=== PATIENT | female | born 1980 | race Caucasian/White ===

== ENCOUNTER 2018-04-09 10:38 | Emergency (ER) | payer MEDICAID, SELFPAY ==
[2018-04-09 10:39] VITALS: BP 166/115; PULSE 95; RESP 20; TEMP 37.1; O2SAT 99; BMI 24.7
--- NOTE | 2018-04-09 10:53 | ED.DCSUM_ITS ---
- ER Visit Summary Date of Service: 04/09/18 Chief Complaint: Cough, nasal congestion and yellowish sputum. History of Present Illness: The patient is a 37 F no significant past medical history. Currently on no medications. Patient does smoke. Plenty URI type symptoms for the last 2-3 days. Son with similar symptoms. Denies fever. Physical Examination: Well-appearing female. Vital signs are stable afebrile. Pulse ox 9 9% on room air no signs of hypoxia. HEENT exam TMs are normal. Posterior pharynx moist and pink no exudate. No frontal maxillary sinus tenderness. No purulent discharge. Neck nontender. No lymphadenopathy. Lungs scattered wheezes. Patient is a smoker. Coarse breath sounds. Dry cough. No rales, no rhonchi. Equal symmetrical. Heart regular rhythm no murmur. Abdomen soft nontender. Moving all 4 extremities. Neurovascularly intact. Calves nontender without edema or cords. Neurologically awake and alert no focal motor deficits. Back nontender. Test Results: None. I do not feel she needs a chest x-ray. I hear no signs of pneumonia. She is not hypoxic. Emergency Department Course and Treatment: Patient treated as a viral URI. Treatment Plan: Prednisone for wheezing. Stop smoking. Disposition: Discharge Impression: Viral bronchitis with bronchospasm Tobacco abuse This note was generated with [employer] dictation software. It may contain incorrect words, spelling, and punctuation that were not noted in review of the chart prior to signing ED Disposition - Plan for ED Patient: Chief Complaint: Cough Referrals: Brodreick Osborne MD [Primary Care Provider] -
--- NOTE | 2018-04-09 10:53 | ED.DEP ---
ED Disposition - Plan for ED Patient: Disposition: Home or Assisted Living Chief Complaint: Cough Instructions: ED Upper Resp Infec No Abx Tx Prescriptions: Prednisone [Deltasone] 40 mg PO DAILY 7 Days tab Referrals: Broderick Osborne MD [Primary Care Provider] - 1 Week if not improving Additional Instructions: Plenty of fluids and rest. Prednisone daily to decrease lung inflammation and wheezing. Very important long-term to stop smoking.
[2018-04-09 11:13] VITALS: BP 149/96; PULSE 80; RESP 17
--- NOTE | 2018-04-10 11:44 | CM.ED ---
ED CALLBACK: Follow-up call placed to patient. Patient states she is feeling better than yesterday. She states she did fill her prescription and states understanding to follow-up with PCP in one week if not improving. Denies questions/concerns.
== END 2018-04-09 11:14 | disposition home or self-care (01) ==
PROVIDERS: Emergency Provider Emergency Medicine; Family Provider Internal Medicine; PCP Internal Medicine
DX: J20.8 Acute bronchitis due to other specified organisms (principal); Z72.0 Tobacco use
CPT/HCPCS: 99282

== ENCOUNTER → 2020-10-06 07:31 | Outpatient (CLI) | payer MEDICAID, SELFPAY ==
--- NOTE | 2020-10-06 08:00 | BRBX_PTH ---
PATIENT: IRVING MEZA LOC: [facility] U#:[id number] AGE/SX: 44/F ROOM: RE10/06/[address]: Dr. Elham Morales MD : 1980 BED: DIS: SPEC #: [id number] RECD: 10/06/20 08:32 STATUS: RUTH ANN EDWINA #: [id number] ALONA: 10/06/20 08:[address]: Elham Morales DEPT: SURGICAL PATHOLOGY RECD BY: Phyllis Craig ENTERED: 10/06/20 09:50 SP TYPE: BREAST BX OT DR: Dr. Broderick Osborne MD Tissues: Right breast, NOS Procedures: Surgery Specimen Level IV HEADER OPERATION: Right breast stereotactic biopsy PRE-OP DIAGNOSIS: Right breast 11 o'clock middle depth microcalcifications TISSUE SUBMITTED: Right breast core tissue ISCHEMIC TIME: 1 minute FIXATION TIME: 11.5 hours MICROSCOPIC DIAGNOSIS Right breast, 11 o'clock middle depth microcalcifications, stereotactic core biopsy: Fragments of benign breast tissue with focal mild fibrocystic changes and mild intraductal hyperplasia without atypia. Frequent microcalcifications. Negative for malignancy. See comment. AUBRIE:amaury 10/07/2020 COMMENT Correlation with clinical, radiologic findings and appropriate follow up are necessary. MICROSCOPIC DESCRIPTION Slides are reviewed. GROSS DESCRIPTION Received in fixative is one container labeled with the patient name and designated right breast. The specimen consists of multiple elongated fragments of michael-yellow fibroadipose tissue that in aggregate measure 5 x 3 x 0.3 cm. The entire specimen is submitted in two cassettes. / AUBRIE:amaury 10/06/20 TC:5 CPT: 29357
--- NOTE | 2020-10-06 09:10 | OP.PCM_ITS ---
Report of Operation Date of Procedure: 10/06/20 Pre-Operative Diagnosis: abnormal right breast mammograms with calcifications Post-Operative Diagnosis: same Surgery/Procedure Performed:: right breast stereotactic biopsy Description of Surgical Findings:: small scattered calcifications in upper outer right breast Type of Anesthesia:: Local - 1% xylocaine Specimen's removed: right breast tissue Estimated Blood Loss (mL): minimal Description of Procedure: After informed consent was given, the patient was brought into the Breast Biopsy suite. Appropriate time out protocol was followed. The patient was placed in the prone position on the stereotactic biopsy table. The patient?s right breast was then placed in the opening at the head of the biopsy table. A ships or barges loader compression mammogram was then obtained in the CC view. The suspicious radiological lesion was thus identified. Stereo pictures of the lesion were then taken for XYZ coordinates. The Mammotome biopsy stylus was then positioned where it would be entering into the patient?s breast. The skin at this site was then cleansed with a surgical skin preparation. The skin and subcutaneous tissues at this site were then infiltrated with 1% xylocaine. A small skin incision was made with an 11 blade scalpel. The biopsy stylus was then positioned into the patient?s breast at the proper coordinates of depth. Using the Mammotome vacuum-assist device, several core samples of breast tissue were obtained. A specimen mammogram was the obtained. It revealed that the abnormal calcifications were within the specimen. I reviewed this personally and concluded that the tissue sampling was adequate. A hemostatic marker clip was then placed into the biopsy cavity and a ships or barges loader film revealed that it was properly deployed. The patient was then placed in the supine position and pressure was applied to the breast until no active bleeding was noted. a nylon suture was placed to reapproximate the skin. A unilateral mammogram in the CC and MLO view were then taken which revealed that the marker clip was in the same area as the previous suspicious lesion. The patient tolerated the procedure well and was discharged from the Breast Biopsy suite in good condition. - Complications none noted
== END ==
PROVIDERS: PCP Internal Medicine; Referring Provider Surgery; Visit Provider Surgery
DX: N62 Hypertrophy of breast (principal); N60.11 Diffuse cystic mastopathy of right breast; J45.909 Unspecified asthma, uncomplicated; F41.9 Anxiety disorder, unspecified; Z79.51 Long term (current) use of inhaled steroids; Z87.891 Personal history of nicotine dependence; Z79.899 Other long term (current) drug therapy
CPT/HCPCS: 19081; 88305; J7050; A4648

== ENCOUNTER 2021-01-29 16:13 | Inpatient (IN) | payer MEDICAID, SELFPAY ==
[2021-01-29 16:14] VITALS: BP 136/89; PULSE 88; RESP 14; TEMP 36.7; O2SAT 96; BMI 23.8
[2021-01-29 18:06] LABS: Absolute Lymphocyte Count 1.23 X10^3/uL (0.83-4.51); Absolute Neutrophil Count 1.8 X10^3/uL (2.0-7.7); Basophil# 0.03 X10^3/uL; Basophil% 0.9 % (0-1); Eosinophil# 0.08 X10^3/uL; Eosinophils% 2.3 % (0-5); Hematocrit 44.3 % (37-47); Hemoglobin 15.1 g/dL (12.0-15.0); Lymphocyte # 1.23 X10^3/ul (0.83-4.51); Lymphocyte % 35.9 % (19-41); Mean Corp Hgb Conc 34.1 g/dL (32-36); Mean Corpuscular Hgb 35.7 pg (27.0-32.0); Mean Corpuscular Volume 104.7 fL (81-99); Mean Platelet Vol. 9.9 fl (6.2-12.0); Monocyte# 0.33 X10^3/uL; Monocyte% 9.6 % (0-10); NRBC Flagged by Analyzer 0 % (0-5); Neutrophil # 1.75 X10^3/uL (2.7-7.7); Platelet Count 275 K/mm3 (150-450); RBC Distribution Width CV 11.4 % (11.6-14.6); RBC Distribution Width SD 44.3 fl (35.1-43.9); Red Blood Count 4.23 M/mm3 (4.2-5.4); White Blood Count 3.4 K/mm3 (4.4-11.0)
[2021-01-29 18:26] LABS: ALB/GLOB Ratio 1.1 RATIO (0.9-2.4); AST(SGOT) 12 U/L (15-37); Alanine Aminotransfer ALT/SGPT 20 U/L (13-56); Alkaline Phosphatase 61 U/L (45-117); Anion Gap 6 (5-15); BUN 8 mg/dL (7-18); BUN/Creat Ratio 6.8 RATIO (10-20); Chloride 107 mmol/L (98-107); Creatinine, Serum 1.18 mg/dL (0.55-1.02); EST Glomerular Filtration Rate 54 mL/min (>60); Est Glom Filt Rate - Afr Amer 65 mL/min (>60); Estimated Creatinine Clearance 52.42 ml/min; Globulin 3.7 g/dL (2.2-4.2); Glucose 105 mg/dL (74-106); Internal QC Validated? YES +Cl - CLEAR BKGD; Lipase 154 U/L (73-393); Potassium 3.1 mmol/L (3.5-5.1); Pregnancy, Serum, hCG Quali. NEGATIVE Negative; Protein, Total 7.7 g/dL (6.4-8.2); Sodium Level 141 mmol/L (136-145)
[2021-01-29 18:29] LABS: Alcohol, Blood (Medical)-Serum < 3.0 mg/dL
[2021-01-29 18:52] LABS: Bacteria 0 SEEN /hpf (None Seen)
[2021-01-29 18:56] LABS: Color, Urine Yellow (Yellow); Glucose, Dipstick Normal (Normal); Ketone-Dipstick Negative (Negative); Leukocyte Esterase-Dipstick Negative /ul (Negative); Nitrite-Dipstick Negative (Negative); Occult Blood-Urine Negative /ul (Negative); Protein-Dipstick Negative (Negative); Urine Bilirubin Dipstick Negative (Negative); Urine Clarity Clear (Clear); Urine Urobilinogen Normal (Normal); Urine pH 6.5 (5.0 - 8.0)
[2021-01-29 19:02] LABS: Mucous, Urine 2+ /hpf (<or=2+); Red Blood Cells-Urine 0-5 SEEN /hpf (0-5); Squamous Epithelial Cells - UA 0-5 SEEN /hpf (5-10); White Blood Cells 0-5 SEEN /hpf (0-5)
--- NOTE | 2021-01-29 19:05 | EDS_ITS ---
HPI History of Present Illness Chief Complaint: Substance Abuse Informant: patient Onset/Context/Timing Onset: Days (3) Context: Gradual Onset Timing: Continuous Quality: Shaky, irritable Location: Generalized Associated Symptoms Associated Symptoms: Negative for vomiting*, diarrhea*, fever*, rash*, seizure, tremor, palpatations, change in mental status, suicidal ideation and homicidal ideation Narrative Narrative: Patient presents requesting detox from alcohol. Patient states that she drinks approximately 20-30 drinks per day. Patient states her last drink was 3 days ago and she only did 2 drinks 3 days ago. Patient states she feels shaky and irritable. Patient denies any prior history of detox. Patient denies any suicidal homicidal ideations. Patient denies any seizures or tremors. Patient denies any nausea, vomiting, fevers, or palpitations. [facility] Medical History (Updated 01/29/21 @ 19:[address] Sven Echols DO) Alcohol abuse Anxiety Depression Hypertension Smoker Substance abuse Home Medications albuterol sulfate [Ventolin HFA] 1 - 2 puff INHALATION Q4H PRN PRN #1 inhaler 05/07/15 [Rx Last Taken Unknown] amlodipine [Norvasc] 5 mg PO DAILY 01/29/21 [History Last Taken Unknown] bupropion HCl [Wellbutrin SR] 150 mg PO BID 01/29/21 [History Last Taken Unknown] varenicline [Chantix Starting Month Box] 1 tab PO BID 01/29/21 [History Last Taken Unknown] Allergy/AdvReac Type Severity Reaction Status Date / Time codeine Allergy Rash Verified 01/29/21 16:16 Surgical History (Updated 01/29/21 @ 19:[address] Sven Echols DO) History of breast biopsy Social History Smoking Status: Heavy Smoker (>10/day) ROS ROS ED Constitutional Constitutional ED: Denies chills or fever(s) Eyes Eyes: Denies blurry vision or change in vision ENT ENT ED: Denies rhinorrhea or sore throat Cardiovascular Cardiovascular: Reports chest pain; Denies palpitations Respiratory/Chest Respiratory/Chest: Denies cough or dyspnea Gastrointestinal Gastrointestinal: Denies nausea or vomiting Genitourinary Genitourinary ED: Denies dysuria or hematuria Musculoskeletal Musculoskeletal: Denies back pain or neck pain Integumentary Denies abscess or rash Neurologic Neurologic: Reports headache(s); Denies weakness Allergic/Immunologic Allergic/Immunologic ED: Denies mouth swelling or urticaria EXAM Physical Exam Const Vital Signs: 01/29/21 16:14 Temperature 98.1 F Temperature Source Temporal Pulse Rate 88 Respiratory Rate 14 Blood Pressure 136/89 H Blood Pressure Mean 104 Pulse Ox 96 Oxygen Delivery Method Room Air Positive well nourished and well developed General Appearance ED: well developed HEENT Reports moist mucous membranes Neck supple and no JVD Resp normal respiratory effort and clear to auscultation bilaterally Cardio regular rate, regular rhythm and no murmurs GI normal to inspection, nondistended, normoactive bowel sounds, soft to palpation, non-tender and non-distended Palpation: soft Extremity normal to inspection General Extremety ED: Negative for edema or tenderness General Extremity: Negative for edema Neuro oriented x3, CN's II-XII intact bilaterally and no sensory deficits noted Sensorium / Orientation: alert Speech: speech normal Motor Exam: strength 5/5 throughout Psych mental status grossly normal Skin no rashes or lesions noted MDM MDM MDM Narrative Medical decision making narrative: CBC was within normal limits. Comprehensive metabolic profile showed mild hypokalemia 3.1. Patient was given a dose of oral potassium here. Lipase was normal. Serum hCG was negative. Urinalysis does not show any evidence of urinary tract infection. Serum alcohol level was less than 3. Urine drug screen is obtained and is positive for cannabinoids and methamphetamines. Case was discussed with the hospitalist. He will admit the patient to his service. Patient understood and was agreeable with the plan. All questions were answered. Lab Data Attestation: I reviewed the patient's lab results. Labs: Laboratory Results - last 24 hr 01/29/21 01/29/21 01/29/21 17:55 17:55 17:55 WBC 3.4 L RBC 4.23 Hgb 15.1 H Hct 44.3 MCV 104.7 H MCH 35.7 H MCHC 34.1 RDW Std Deviation 44.3 H RDW Coeff of [place] 11.4 L Plt Count 275 MPV 9.9 Immature Gran % (Auto) 0.300 Neut % (Auto) 51.0 Lymph % (Auto) 35.9 [place] % (Auto) 9.6 Eos % (Auto) 2.3 Baso % (Auto) 0.9 Absolute Neuts (auto) 1.8 L Absolute Lymphs (auto) 1.23 Nucleated RBC % 0 Sodium 141 Potassium 3.1 L Chloride 107 Carbon Dioxide 28.0 Anion Gap 6 BUN 8 Creatinine 1.18 H Estim Creat Clear Calc 52.42 Est GFR (MDRD) Af Amer 65 Est GFR (MDRD) Non-Af 54 L BUN/Creatinine Ratio 6.8 L Glucose 105 Calcium 9.0 Total Bilirubin 0.40 AST 12 L ALT 20 Alkaline Phosphatase 61 Total Protein 7.7 Albumin 4.0 Globulin 3.7 Albumin/Globulin Ratio 1.1 Lipase 154 Serum , Qual Urine Color Urine Clarity Urine pH Ur Specific [place] Urine Protein Urine Glucose (UA) Urine Ketones Urine Occult Blood Urine Nitrite Urine Bilirubin Urine Urobilinogen Ur Leukocyte Esterase Urine RBC Urine WBC Ur Squamous Epith Cells Urine Bacteria Urine Mucus Urine Opiates Screen Urine Methadone Screen Ur Barbiturates Screen Ur Phencyclidine Scrn Ur Amphetamines Screen U Methamphetamin-MDMA U Benzodiazepines Scrn Urine Cocaine Screen U Cannabinoids Screen Ur Drug Screen Comment Ethyl Alcohol < 3.0 01/29/21 01/29/21 01/29/21 17:55 18:45 18:45 WBC RBC Hgb Hct MCV MCH MCHC RDW Std Deviation RDW Coeff of [place] Plt Count MPV Immature Gran % (Auto) Neut % (Auto) Lymph % (Auto) [place] % (Auto) Eos % (Auto) Baso % (Auto) Absolute Neuts (auto) Absolute Lymphs (auto) Nucleated RBC % Sodium Potassium Chloride Carbon Dioxide Anion Gap BUN Creatinine Estim Creat Clear Calc Est GFR (MDRD) Af Amer Est GFR (MDRD) Non-Af BUN/Creatinine Ratio Glucose Calcium Total Bilirubin AST ALT Alkaline Phosphatase Total Protein Albumin Globulin Albumin/Globulin Ratio Lipase Serum , Qual NEGATIVE Urine Color Yellow Urine Clarity Clear Urine pH 6.5 Ur Specific [place] 1.010 Urine Protein Negative Urine Glucose (UA) Normal Urine Ketones Negative Urine Occult Blood Negative Urine Nitrite Negative Urine Bilirubin Negative Urine Urobilinogen Normal Ur Leukocyte Esterase Negative Urine RBC 0-5 SEEN Urine WBC 0-5 SEEN Ur Squamous Epith Cells 0-5 SEEN Urine Bacteria 0 SEEN Urine Mucus 2+ Urine Opiates Screen NEGATIVE Urine Methadone Screen NEGATIVE Ur Barbiturates Screen NEGATIVE Ur Phencyclidine Scrn NEGATIVE Ur Amphetamines Screen NEGATIVE U Methamphetamin-MDMA POSITIVE H U Benzodiazepines Scrn NEGATIVE Urine Cocaine Screen NEGATIVE U Cannabinoids Screen POSITIVE H Ur Drug Screen Comment Ethyl Alcohol Treatment and Re-Evaluation Vital Sign Attestation:: Vital signs were reviewed prior to admission. They are stable. Discharge Plan Dx/Rx/DC Orders Clinical Impression: Alcohol withdrawal Disposition Disposition: Acute Care Hospital [facility]
[2021-01-29 19:15] LABS: Amphetamine Urine VISTA NEGATIVE (<1000 ng/mL); Barbiturate Urine VISTA NEGATIVE (< 200 ng/mL); Benzodiazepine Urine VISTA NEGATIVE (< 200 ng/mL); Cocaine Urine VISTA NEGATIVE (< 300 ng/mL); Ecstacy Urine VISTA POSITIVE (< 500 ng/mL); Methadone Urine VISTA NEGATIVE (< 300 ng/mL); PCP Urine VISTA NEGATIVE (< 25 ng/mL); THC Urine VISTA POSITIVE (< 50 ng/mL); Vista UDS pH Range 6
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
[2021-01-29 20:22] VITALS: BP 128/88; PULSE 79; RESP 18; TEMP 36.3; O2SAT 98
[2021-01-29 20:53] VITALS: BMI 23.5
[2021-01-29 21:07] VITALS: BP 123/88; PULSE 71; RESP 18; TEMP 36.8; O2SAT 96
[2021-01-29] MEDS: Phenobarbital 32.4 MG Tablet PO (21:44)
[2021-01-29] MEDS: traZODone 100 MG Tablet PO (21:44)
[2021-01-29] MEDS: hydrOXYzine PAM 25 MG Capsule 50 MG PO (21:44)
--- NOTE | 2021-01-29 21:45 | NURSING ---
This RN spoke with pt's significant other per pt's request. Significant other aware that pt was admitted and will most likely be here for a few days. She will be provided with connections to [facility] at the start of the week. The significant other is concerned that pt has a lot of mental health that runs in her family and is worried about her in this area. He is aware that case management and [facility] will have knowledge and possible connections related to this to provide for pt.
[2021-01-29] MEDS: buPROPion (SR) 150 MG Tablet.SA PO (23:46)
[2021-01-29] MEDS: Varenicline 1 MG Tablet PO (23:46)
[2021-01-30 02:15] VITALS: BP 106/68; PULSE 74; RESP 15; TEMP 36.4; O2SAT 95
[2021-01-30] MEDS: Phenobarbital 32.4 MG Tablet PO ×6 (02:16→21:11)
[2021-01-30 04:58] LABS: Absolute Lymphocyte Count 1.83 X10^3/uL (0.83-4.51); Basophil# 0.02 X10^3/uL; Basophil% 0.6 % (0-1); Eosinophil# 0.15 X10^3/uL; Eosinophils% 4.6 % (0-5); Hematocrit 38.2 % (37-47); Hemoglobin 12.8 g/dL (12.0-15.0); Lymphocyte # 1.83 X10^3/ul (0.83-4.51); Lymphocyte % 55.6 % (19-41); Mean Corp Hgb Conc 33.5 g/dL (32-36); Mean Corpuscular Hgb 35.3 pg (27.0-32.0); Mean Corpuscular Volume 105.2 fL (81-99); Mean Platelet Vol. 9.9 fl (6.2-12.0); Monocyte# 0.34 X10^3/uL; Monocyte% 10.3 % (0-10); NRBC Flagged by Analyzer 0 % (0-5); Neutrophil # 0.95 X10^3/uL (2.7-7.7); Neutrophil % 28.9 % (47-70); POSITIVE DIFFERENTIAL YES; Platelet Count 226 K/mm3 (150-450); RBC Distribution Width CV 11.2 % (11.6-14.6); RBC Distribution Width SD 43.6 fl (35.1-43.9); Red Blood Count 3.63 M/mm3 (4.2-5.4); White Blood Count 3.3 K/mm3 (4.4-11.0)
[2021-01-30 05:04] LABS: Differential Indicated SCAN CRITERIA MET
[2021-01-30 07:08] VITALS: O2SAT 95
[2021-01-30] MEDS: Folic Acid 1 MG Tablet PO (08:39)
[2021-01-30] MEDS: Potassium Chloride Oral Tablet 20 MEQ 60 MEQ PO (08:39)
[2021-01-30] MEDS: Thiamine Hydrochloride 100 MG Tablet PO (08:39)
[2021-01-30 08:40] VITALS: BP 107/75; PULSE 75; RESP 16; TEMP 36.7; O2SAT 94
[2021-01-30 08:50] VITALS: PULSE 72
[2021-01-30] MEDS: Gabapentin 300 MG Capsule PO (08:50)
[2021-01-30] MEDS: amLODIPine 5 MG Tablet PO (10:01)
[2021-01-30] MEDS: Varenicline 1 MG Tablet PO ×2 (10:01→21:12)
[2021-01-30] MEDS: buPROPion (SR) 150 MG Tablet.SA PO ×2 (10:01→21:12)
--- NOTE | 2021-01-30 11:06 | PN.HOSP_ITS ---
Subjective Subjective Patient seen and examined. She has been managed for acute alcohol withdrawal. He has no complaints this morning was quite somnolent. Review of systems otherwise negative. Objective Data Objective Data Vital Signs: Vital Signs Temp Pulse Resp BP Pulse Ox 98.0 F 72 16 107/75 94 01/30/21 08:40 01/30/21 08:50 01/30/21 08:40 01/30/21 08:40 01/30/21 08:40 Oxygen Delivery Method Room Air Weight: 132 lb 11.492 oz Body Mass Index (BMI) 23.5 Intake & Output: Intake and Output for Last 24 Hours 01/28/21 01/29/21 01/30/21 23:59 23:59 23:59 Intake Total 250 / 250 200 / 200 Balance 250 / 250 200 / 200 Lab / Micro Data Result Diagrams: 01/30/21 04:51 01/29/21 17:55 Labs: Laboratory Results - last 24 hr 01/29/21 01/29/21 01/29/21 17:55 17:55 17:55 WBC 3.4 L RBC 4.23 Hgb 15.1 H Hct 44.3 MCV 104.7 H MCH 35.7 H MCHC 34.1 RDW Std Deviation 44.3 H RDW Coeff of Kenzie 11.4 L Plt Count 275 MPV 9.9 Immature Gran % (Auto) 0.300 Neut % (Auto) 51.0 Lymph % (Auto) 35.9 Long % (Auto) 9.6 Eos % (Auto) 2.3 Baso % (Auto) 0.9 Absolute Neuts (auto) 1.8 L Absolute Lymphs (auto) 1.23 Nucleated RBC % 0 Sodium 141 Potassium 3.1 L Chloride 107 Carbon Dioxide 28.0 Anion Gap 6 BUN 8 Creatinine 1.18 H Estim Creat Clear Calc 52.42 Est GFR (MDRD) Af Amer 65 Est GFR (MDRD) Non-Af 54 L BUN/Creatinine Ratio 6.8 L Glucose 105 Calcium 9.0 Total Bilirubin 0.40 AST 12 L ALT 20 Alkaline Phosphatase 61 Total Protein 7.7 Albumin 4.0 Globulin 3.7 Albumin/Globulin Ratio 1.1 Lipase 154 Serum , Qual Urine Color Urine Clarity Urine pH Ur Specific [place] Urine Protein Urine Glucose (UA) Urine Ketones Urine Occult Blood Urine Nitrite Urine Bilirubin Urine Urobilinogen Ur Leukocyte Esterase Urine RBC Urine WBC Ur Squamous Epith Cells Urine Bacteria Urine Mucus Urine Opiates Screen Urine Methadone Screen Ur Barbiturates Screen Ur Phencyclidine Scrn Ur Amphetamines Screen U Methamphetamin-MDMA U Benzodiazepines Scrn Urine Cocaine Screen U Cannabinoids Screen Ur Drug Screen Comment Ethyl Alcohol < 3.0 01/29/21 01/29/21 01/29/21 17:55 18:45 18:45 WBC RBC Hgb Hct MCV MCH MCHC RDW Std Deviation RDW Coeff of Kenzie Plt Count MPV Immature Gran % (Auto) Neut % (Auto) Lymph % (Auto) Long % (Auto) Eos % (Auto) Baso % (Auto) Absolute Neuts (auto) Absolute Lymphs (auto) Nucleated RBC % Sodium Potassium Chloride Carbon Dioxide Anion Gap BUN Creatinine Estim Creat Clear Calc Est GFR (MDRD) Af Amer Est GFR (MDRD) Non-Af BUN/Creatinine Ratio Glucose Calcium Total Bilirubin AST ALT Alkaline Phosphatase Total Protein Albumin Globulin Albumin/Globulin Ratio Lipase Serum , Qual NEGATIVE Urine Color Yellow Urine Clarity Clear Urine pH 6.5 Ur Specific [place] 1.010 Urine Protein Negative Urine Glucose (UA) Normal Urine Ketones Negative Urine Occult Blood Negative Urine Nitrite Negative Urine Bilirubin Negative Urine Urobilinogen Normal Ur Leukocyte Esterase Negative Urine RBC 0-5 SEEN Urine WBC 0-5 SEEN Ur Squamous Epith Cells 0-5 SEEN Urine Bacteria 0 SEEN Urine Mucus 2+ Urine Opiates Screen NEGATIVE Urine Methadone Screen NEGATIVE Ur Barbiturates Screen NEGATIVE Ur Phencyclidine Scrn NEGATIVE Ur Amphetamines Screen NEGATIVE U Methamphetamin-MDMA POSITIVE H U Benzodiazepines Scrn NEGATIVE Urine Cocaine Screen NEGATIVE U Cannabinoids Screen POSITIVE H Ur Drug Screen Comment Ethyl Alcohol 01/30/21 04:51 WBC 3.3 L RBC 3.63 L Hgb 12.8 Hct 38.2 MCV 105.2 H MCH 35.3 H MCHC 33.5 RDW Std Deviation 43.6 RDW Coeff of Kenzie 11.2 L Plt Count 226 MPV 9.9 Immature Gran % (Auto) 0.000 Neut % (Auto) 28.9 L Lymph % (Auto) 55.6 H Long % (Auto) 10.3 H Eos % (Auto) 4.6 Baso % (Auto) 0.6 Absolute Neuts (auto) 1.0 L Absolute Lymphs (auto) 1.83 Nucleated RBC % 0 Sodium Potassium Chloride Carbon Dioxide Anion Gap BUN Creatinine Estim Creat Clear Calc Est GFR (MDRD) Af Amer Est GFR (MDRD) Non-Af BUN/Creatinine Ratio Glucose Calcium Total Bilirubin AST ALT Alkaline Phosphatase Total Protein Albumin Globulin Albumin/Globulin Ratio Lipase Serum , Qual Urine Color Urine Clarity Urine pH Ur Specific [place] Urine Protein Urine Glucose (UA) Urine Ketones Urine Occult Blood Urine Nitrite Urine Bilirubin Urine Urobilinogen Ur Leukocyte Esterase Urine RBC Urine WBC Ur Squamous Epith Cells Urine Bacteria Urine Mucus Urine Opiates Screen Urine Methadone Screen Ur Barbiturates Screen Ur Phencyclidine Scrn Ur Amphetamines Screen U Methamphetamin-MDMA U Benzodiazepines Scrn Urine Cocaine Screen U Cannabinoids Screen Ur Drug Screen Comment Ethyl Alcohol Physical Exam Const alert, oriented x3 and no apparent distress Exam Limitations: no limitations HEENT head/scalp atraumatic, moist oral mucous membranes and oropharynx normal Head and Scalp: normocephalic Eyes PERRL, EOMs intact bilaterally and conjunctivae normal Neck no lymphadenopathy, supple and no JVD Resp normal respiratory effort Cardio regular rate, regular rhythm, S1 normal heart sound, S2 normal heart sound and no murmurs GI normal to inspection, nondistended, normoactive bowel sounds, soft to palpation, non-tender and non-distended Extremity normal to inspection, full ROM and no clubbing, cyanosis or edema Peripheral Pulses: Yes pulses 2+ throughout Skin no rashes or lesions noted Neuro oriented x3 Sensorium / Orientation: awake and alert Psych affect normal Assessment & Plan Assessment/Plan (1) Alcohol withdrawal: PLAN: #Acute alcohol withdrawal * On alcohol withdrawal protocol with phenobarbital * On multivitamin, thiamine and folic acid. * Monitor CIWA score. * On adjunctive treatment for symptomatic relief * #Hypokalemia: K is 3.1. Will replace and trend #Hypertension: on amlodipine #Depression and anxiety: on wellbutrin #Nicotine dependence: on nicotine patch and Chantix DVT prophylaxis: low risk,encouraged to ambulate Charges/Coding Visit Charges Inpatient E&M: 59922 Subs Hosp L2
[2021-01-30 14:19] VITALS: BP 99/66; PULSE 68; RESP 16; TEMP 36.6; O2SAT 96
[2021-01-30] MEDS: hydrOXYzine PAM 25 MG Capsule 50 MG PO (17:47)
[2021-01-30 21:09] VITALS: BP 108/70; PULSE 68; RESP 15; TEMP 36.6; O2SAT 98
[2021-01-31 02:10] VITALS: BP 107/76; PULSE 66; RESP 16; TEMP 36.7; O2SAT 94
[2021-01-31] MEDS: Phenobarbital 32.4 MG Tablet PO ×6 (02:14→22:11)
[2021-01-31 08:47] VITALS: PULSE 70
[2021-01-31 08:53] VITALS: BP 113/82; PULSE 71; RESP 16; TEMP 36.5; O2SAT 98
[2021-01-31] MEDS: Folic Acid 1 MG Tablet PO (09:14)
[2021-01-31] MEDS: Thiamine Hydrochloride 100 MG Tablet PO (09:14)
[2021-01-31] MEDS: amLODIPine 5 MG Tablet PO (09:14)
[2021-01-31] MEDS: Varenicline 1 MG Tablet PO ×2 (09:15→22:11)
--- NOTE | 2021-01-31 10:09 | ADDICTION ---
This administrative underwriter attempted to meet with PT. PT was asleep and did not wake to 3 verbal attempts to rouse her. This administrative underwriter will attempt to meet with patient on next visit 02/01/21.
--- NOTE | 2021-01-31 11:00 | PCM.PN.HOSP ---
Subjective Subjective Resting comfortably, no issues overnight. CIWA of 5 early this morning Objective Data Objective Data Vital Signs: Vital Signs Temp Pulse Resp BP Pulse Ox 97.7 F L 71 16 113/82 H 98 01/31/21 08:53 01/31/21 08:53 01/31/21 08:53 01/31/21 08:53 01/31/21 08:53 Oxygen Delivery Method Room Air Weight: 132 lb 11.492 oz Body Mass Index (BMI) 23.5 Intake & Output: Intake and Output for Last 24 Hours 01/30/21 01/31/21 02/01/21 03:59 03:59 03:59 Intake Total 250 / 250 620 / 620 200 / 200 Balance 250 / 250 620 / 620 200 / 200 Lab / Micro Data Result Diagrams: 01/30/21 04:51 01/29/21 17:55 Physical Exam Const alert, oriented x3 and no apparent distress General Appearance: cooperative HEENT normocephalic and moist oral mucous membranes Eyes PERRL, EOMs intact bilaterally and conjunctivae normal Neck supple and no JVD Resp normal respiratory effort, no retractions, no use of accessory muscles and clear to auscultation bilaterally Auscultation: Negative for crackles, rales, rhonchi or wheezes Cardio regular rate, regular rhythm, S1 normal heart sound, S2 normal heart sound and no murmurs GI soft to palpation, non-tender and non-distended; Negative for hepatosplenomegaly Extremity no clubbing, cyanosis or edema Skin no rashes or lesions noted Neuro no focal motor deficits and no sensory deficits noted Psych affect normal Appearance: appropriate Assessment & Plan Assessment/Plan (1) Alcohol withdrawal: PLAN: 1. Acute alcohol withdrawal/tobacco abuse/depression/anxiety -Continue with alcohol withdrawal protocol -Plan for follow-up with 180 as an outpatient -Continue with nicotine patch, counseled on cessation -Continue with Wellbutrin 2. HTN -Stable -Continue with Norvasc DVT: Ambulation Charges/Coding Visit Charges Inpatient E&M: 60287 Subs Hosp L2
[2021-01-31] MEDS: buPROPion (SR) 150 MG Tablet.SA PO ×2 (12:25→22:11)
[2021-01-31 13:32] VITALS: BP 102/59; PULSE 80; RESP 16; TEMP 37.4; O2SAT 94
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
[2021-01-31 17:10] VITALS: BP 117/76; PULSE 77; RESP 18; TEMP 36.9; O2SAT 100
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
--- NOTE | 2021-01-31 18:07 | NURSING ---
D escorted by [facility] security to unit to see pt regarding report as directed by social work program coordinator
[2021-01-31 20:00] VITALS: BP 100/70; PULSE 74; RESP 16; TEMP 36.6; O2SAT 100
[2021-02-01 02:00] VITALS: BP 112/77; PULSE 70; RESP 16; TEMP 36.6; O2SAT 98
[2021-02-01] MEDS: Phenobarbital 32.4 MG Tablet PO ×4 (02:03→17:33)
[2021-02-01 08:29] VITALS: BP 113/82; PULSE 71; RESP 18; TEMP 36.9; O2SAT 98
[2021-02-01] MEDS: Folic Acid 1 MG Tablet PO (08:31)
[2021-02-01] MEDS: buPROPion (SR) 150 MG Tablet.SA PO ×2 (08:32→21:29)
[2021-02-01] MEDS: Thiamine Hydrochloride 100 MG Tablet PO (08:32)
[2021-02-01] MEDS: amLODIPine 5 MG Tablet PO (08:32)
[2021-02-01 09:17] VITALS: O2SAT 98
--- NOTE | 2021-02-01 09:54 | ADDICTION ---
This public relations writer met with PT to conduct ASAM, MSE, AUDIT assessments and to plan for d/c. All assessments completed, faxed to [facility] and placed in PT's chart. PT provided with educational resources. PT requesting residential placement. This public relations writer has called Aniyah Thomas to begin coordinating for d/c.
[2021-02-01 10:44] VITALS: PULSE 90
[2021-02-01] MEDS: Varenicline 1 MG Tablet PO ×2 (12:38→21:29)
--- NOTE | 2021-02-01 13:22 | PCM.PN.HOSP ---
Subjective Subjective Resting comfortably, no issues overnight. Tolerating her phenobarb taper. Met with [facility] today, plan is for residential treatment on discharge. Objective Data Objective Data Vital Signs: Vital Signs Temp Pulse Resp BP Pulse Ox 98.5 F 90 18 113/82 H 98 02/01/21 08:29 02/01/21 10:44 02/01/21 08:29 02/01/21 08:29 02/01/21 09:17 Oxygen Delivery Method Room Air Weight: 132 lb 11.492 oz Body Mass Index (BMI) 23.5 Intake & Output: Intake and Output for Last 24 Hours 01/31/21 02/01/21 02/02/21 03:59 03:59 03:59 Intake Total 620 / 620 500 / 500 250 / 250 Balance 620 / 620 500 / 500 250 / 250 Lab / Micro Data Result Diagrams: 01/30/21 04:51 01/29/21 17:55 Physical Exam Const alert, oriented x3 and no apparent distress General Appearance: cooperative HEENT normocephalic and moist oral mucous membranes Eyes PERRL, EOMs intact bilaterally and conjunctivae normal Neck supple and no JVD Resp normal respiratory effort, no retractions, no use of accessory muscles and clear to auscultation bilaterally Auscultation: Negative for crackles, rales, rhonchi or wheezes Cardio regular rate, regular rhythm, S1 normal heart sound, S2 normal heart sound and no murmurs GI soft to palpation, non-tender and non-distended; Negative for hepatosplenomegaly Extremity no clubbing, cyanosis or edema Skin no rashes or lesions noted Neuro no focal motor deficits and no sensory deficits noted Psych affect normal Appearance: appropriate Assessment & Plan Assessment/Plan (1) Alcohol withdrawal: PLAN: 1. Acute alcohol withdrawal/tobacco abuse/depression/anxiety -Continue with alcohol withdrawal protocol -Plan for follow-up with [facility] as an outpatient -Continue with nicotine patch, counseled on cessation -Continue with Wellbutrin 2. HTN -Stable -Continue with Norvasc DVT: Ambulation Charges/Coding Visit Charges Inpatient E&M: 42785 Subs Hosp L2
[2021-02-01 14:22] VITALS: BP 103/82; PULSE 84; RESP 18; TEMP 37.2; O2SAT 96
[2021-02-01 21:26] VITALS: BP 123/87; PULSE 84; RESP 16; TEMP 36.9; O2SAT 99
[2021-02-02] MEDS: Phenobarbital 32.4 MG Tablet PO ×5 (00:15→22:33)
[2021-02-02] MEDS: Acetaminophen 325 MG Tablet 650 MG PO (01:01)
[2021-02-02 05:30] VITALS: BP 108/70; PULSE 65; RESP 16; TEMP 36.6; O2SAT 96
--- NOTE | 2021-02-02 09:14 | ADDICTION ---
This teletypewriter installer collaborated with Admissions Department at [facility] in order to plan for PT's d/c at her request. APR is looking into PT's insurance and will reply with approval/denial upon agency meeting. Bicycle Inspector noted she would contact this teletypewriter installer before lunch today.
[2021-02-02] MEDS: Folic Acid 1 MG Tablet PO (09:34)
[2021-02-02] MEDS: buPROPion (SR) 150 MG Tablet.SA PO ×2 (09:35→22:33)
[2021-02-02] MEDS: Thiamine Hydrochloride 100 MG Tablet PO (09:35)
[2021-02-02] MEDS: amLODIPine 5 MG Tablet PO (09:35)
[2021-02-02] MEDS: Varenicline 1 MG Tablet PO ×2 (09:35→22:33)
[2021-02-02 11:24] VITALS: BP 110/74; PULSE 72; RESP 18; TEMP 36.6; O2SAT 98
[2021-02-02 11:25] VITALS: BP 110/74; PULSE 72; RESP 18; TEMP 36.6; O2SAT 98
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
--- NOTE | 2021-02-02 12:58 | CASEMGMT ---
Social Work Note ANSLEY received call from Stephania with [facility] stating [facility] is not able to accept pt. Stephania to meet with pt tomorrow morning to continue coordination of discharge plans. ANSLEY updated physician. Reyna Adame TUG BOAT CAPTAIN, ELECTRICIAN DECK
[2021-02-02 16:02] VITALS: O2SAT 98
--- NOTE | 2021-02-02 16:32 | CHAPLAIN ---
Type of Pastoral Visit ___ Initial Visit _x__ Follow-up Visit ___ On-call Visit ___ General Patient Visit ___ Spiritual Assessment ___ Family Conference ___ Bereavement ___ Rapid Response ___ Code Blue ___ Other (describe below) Pastoral Care Referral From _x__ Patient ___ Family ___ Nurse ___ Physician ___ Men'S Custom Hair Piece Consultant ___ Cabinetmaker Maintenance ___ Other (describe below) Sacrament/Intervention _x__ Active listening ___ Anointing ___ Gnosticism ___ Bereavement ___ Communion ___ Jeanne exploration ___ ___ Life review _x__ Prayer ___ Reconciliation ___ Sacrament of Sick _x__ Supportive presence ___ Wedding ___ Other (describe below) Pastoral Comments patient states that she is feeling sad at this time due to her needing to stay in hospital longer than she expected; pt also expresses appreciation for her nurse today and the follow through and encouragement; pt welcomes presence and prayer support
[2021-02-02 17:54] VITALS: BP 111/77; PULSE 83; RESP 18; TEMP 36.7; TEMP 37.1; O2SAT 97
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
--- NOTE | 2021-02-02 20:21 | NURSING ---
[facility]'s Dept deputy here to see pt.
[2021-02-02 22:25] VITALS: BP 105/77; PULSE 76; RESP 17; TEMP 36.7; O2SAT 97
--- NOTE | 2021-02-03 00:20 | NURSING ---
Message left with Jeffery, Patient Advocate, to follow up with this pt. The deputy that had talked to her earlier just wanted to make sure someone followed up with her but it wasn't urgent.
[2021-02-03] MEDS: traZODone 100 MG Tablet PO (00:43)
[2021-02-03 02:28] VITALS: BP 101/60; PULSE 75; RESP 17; TEMP 36.5; O2SAT 97
--- NOTE | 2021-02-03 09:17 | ADDICTION ---
This health underwriter spoke with PT's nurse who noted that PT's tri has been calling and informed her that he is not able to watch PT's children while she is in residential treatment. This health underwriter informed PT. PT to d/c to home with follow-up resources and this health underwriter's contact information. PT requested to discharge [facility].
[2021-02-03] MEDS: Folic Acid 1 MG Tablet PO (09:24)
[2021-02-03] MEDS: Thiamine Hydrochloride 100 MG Tablet PO (09:25)
[2021-02-03] MEDS: amLODIPine 5 MG Tablet PO (09:25)
[2021-02-03] MEDS: buPROPion (SR) 150 MG Tablet.SA PO (09:25)
[2021-02-03] MEDS: Varenicline 1 MG Tablet PO (09:25)
[2021-02-03 10:05] VITALS: BP 110/69; PULSE 70; RESP 18; TEMP 36.7; O2SAT 95
--- NOTE | 2021-02-03 10:07 | PCM.DC ---
Discharge Instructions Diet Discharge Diet: No restrictions Activity Discharge Activity: Return to Normal Activity Dressing / Incision Call your doctor if you observe: Fever of 101 or Higher, Shortness of breath, Dizziness, Swelling in the ankles, Chest pain and Increased palpitations (irregular heartbeat) Follow Up Care Test Results: Test results from this visit will be discussed in further detail at your follow-up appointment, if applicable. Discharge Plan Admission Admit Date/Time: 01/29/21 19:23 Attending Provider: Addy Huffman Primary Care Provider: Broderick Osborne Discharge Orders/Prescriptions Prescriptions: Continued albuterol sulfate [Ventolin HFA] 1 INHALER inhaler 1 - 2 puff inhalation Q4H PRN PRN (Reason: Wheezing) Qty: 1 RF: 0 bupropion HCl [Wellbutrin SR] 150 mg tablet sustained-release 12 hr 150 mg PO BID RF: 0 amlodipine [Norvasc] 5 mg tablet 5 mg PO DAILY RF: 0 Chantix Starting Month Box 0.5 mg (11)- 1 mg (42) tablets,dose pack 1 tab PO BID RF: 0 Referrals / Follow Up: Broderick Osborne MD [Primary Care Provider] - Disposition Disposition (needs filled in before D/C Order can be placed): Home, Self Care
--- NOTE | 2021-02-03 10:54 | PHA.DC.MR ---
Pharmacy Service has performed discharge medication reconciliation for this patient. No new medications at time of discharge. Medications reviewed are from previously reported home medications. Home Medications albuterol sulfate [Ventolin HFA] 1 - 2 puff INHALATION Q4H PRN PRN #1 inhaler 05/07/15 Chantix Starting Month Box 1 tab PO BID 01/29/21 amlodipine [Norvasc] 5 mg PO DAILY 01/29/21 bupropion HCl [Wellbutrin SR] 150 mg PO BID 01/29/21 The patient's discharge medication list was reviewed for discrepancies and discrepancies were resolved.
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
== END 2021-02-03 11:09 | disposition home or self-care (01) | DRG 775 ==
LOC: ED 19:10 → MS3 21:21
PROVIDERS: Admitting Provider Hospitalist; Emergency Provider Emergency Medicine; PCP Internal Medicine; Visit Provider Family Medicine
DX: F10.239 Alcohol dependence with withdrawal, unspecified (principal); E87.6 Hypokalemia; F17.210 Nicotine dependence, cigarettes, uncomplicated; I10 Essential (primary) hypertension; F32.9 Major depressive disorder, single episode, unspecified; F41.9 Anxiety disorder, unspecified; F12.10 Cannabis abuse, uncomplicated; Z79.899 Other long term (current) drug therapy
CPT/HCPCS: 36415; 80053; 80307; 81001; 82077; 83690; 84703; 85025; 97802; 99283; 99406; A4216